=== PATIENT | male | born 1940 | race Caucasian/White ===

== ENCOUNTER 2020-04-22 00:42 | Inpatient (IN) | payer MEDICARE ==
[~2020-04-22] VITALS: Ht 172.7 cm; Wt 89.0 kg
[2020-04-22] VITALS (22 sets, daily range): BP systolic 112–189; BP diastolic 63–86
--- NOTE | 2020-04-22 00:42 | NUR ---
PT TO ROOM AT 0037 BY EMS AND EKG DONE. PT HR 167. DR WOOD AT BEDSIDE. PT STATES SOB GOT WORSE TONIGHT. SAW PMD FOR SOB FOR 5 DAYS AND STARTED ON MUSINEX WHICH HE STATES IS NOT HELPING.
--- NOTE | 2020-04-22 01:06 | NUR ---
PT NOW IN A-FLUTTER 90. PT STATES NO MORE CHEST TIGHTNESS AND NO SOB,
[2020-04-22 01:30] LABS: HEMATOCRIT 44.9 % (39.0-50.0); HEMOGLOBIN 15.2 g/dl (14.0-18.0); IMMATURE GRANULOCYTES 0.7 % (0.0-5.0); MEAN CELL VOLUME 85.2 fL CALC (80.0-100.0); MEAN CORPUSCULAR HGB 28.8 pG CALC (26.0-32.0); MEAN CORPUSCULAR HGB CONC 33.9 g/dL CAL (32.0-36.0); NEUT# 5.62 thou/uL (1.82-7.42); RED BLOOD COUNT 5.27 mill/uL (4.70-6.10); RED CELL DISTRI WIDTH 13.2 % (11.5-15.5)
[2020-04-22 01:58] LABS: ALBUMIN 3.8 g/dL (3.2-5.0); BILIRUBIN, TOTAL 0.9 mg/dL (0.0-1.4); CREATININE 1.5 mg/dL (0.7-1.3); POTASSIUM 3.7 mmol/l (3.5-5.1); TOTAL PROTEIN 6.9 g/dL (6.3-8.2)
[2020-04-22] MEDS ORDERED: METOPROL TAR25 MG PO (01:59)
[2020-04-22] MEDS ORDERED: ASPIRIN81 MG PO (02:01)
[2020-04-22] MEDS ORDERED: LISINOPRIL20 MG PO (02:01)
[2020-04-22] MEDS ORDERED: VIAGRA100 MG PO (02:02)
[2020-04-22] MEDS ORDERED: PLAVIX75 MG PO (02:02)
[2020-04-22] MEDS ORDERED: HYDROCHLOROT12.5 MG PO (02:03)
[2020-04-22] MEDS ORDERED: LANTUS100 UNIT/M SC (02:03)
[2020-04-22] MEDS ORDERED: FISH OIL1000 MG PO (02:04)
[2020-04-22] MEDS ORDERED: TAMSULOSIN0.4 MG PO (02:05)
--- NOTE | 2020-04-22 02:06 | NUR ---
PT HR 89 CARDIZEM DRIP INFUSING AT 5MG/HR. PT HAS HAQUE IN HIS WALLET NOTED WHEN CHECKING FOR MEDLIST. COUNTED IN FRONT OF PT AND TOTAL OF 87 DOLLARS. 1 20$ 1 50$ 2 5$ 7 1$
[2020-04-22 02:20] LABS: D-DIMER 1.23 mg/L (0.19-0.60)
[2020-04-22 02:26] LABS: ACT PARTIAL THROMBO TIME 29.4 SECONDS (20.0-32.5); INTERNATIONAL NORMALIZED RATIO 1.2 RATIO (0.7-1.3); PROTHROMBIN TIME 11.7 SECONDS (9.0-12.5)
[2020-04-22 02:28] LABS: TSH, 3RD GENERATION 2.28 uIU/mL (0.47 - 4.68)
--- NOTE | 2020-04-22 02:35 | NUR ---
PT ADMITED TO HOSPITAL TO ER HOLD ROOM 11
--- NOTE | 2020-04-22 02:35 | NUR ---
PT ADMITTED ER BED 11 FOR ICU. CARDIZEM DRIP CONTINUES AT 5MG/ML. PT RESTING QUIETLY, CONTINUES IN AFLUTTER ON MONITOR. CALL SPARKS IN REACH.
--- NOTE | 2020-04-22 04:35 | NUR ---
PT CHANGED INTO HOSPITAL BED. IV CARDIZEM CONTINUES TO INFUSES WITH NS. MONITOR CONTINUES WITH AFLUTTER.
--- NOTE | 2020-04-22 06:31 | NUR ---
PT NOW GOING FROM AFLUTTER TO AFIB STILL 90-91. PT CONTIUES TO REST QUIETLY ON STRETCHER. CALL SPARKS IN REACH.
--- NOTE | 2020-04-22 06:55 | NUR ---
REPORT GIVEN TO BOWEN KELLEY
--- NOTE | 2020-04-22 07:00 | NUR ---
PATIENT REPORT RECIEVED FROM JIGAR PACK FOR TRANSPORT ONLY.
--- NOTE | 2020-04-22 07:31 | NUR ---
male pt received from ER via bed accompanied per Yfn Pierson RN in stable condition; assessment completed at this time; pt alert and oriented; denies pain/ discomfort; offers no complaints; c/c of sob X5 days associated with nonproductive cough; resp even and unlabored; exertional sob noted; lungs diminished with rales to bilat bases; skin color wnl; o2 per nc at 4L; o2 sat 91%; freq creative services coordinator cough noted; coughing etiquette explained; hr irreg; weak pedal pulses; no edema noted; aflutter on monitor; hr 90s; abd soft/distended with bs present; no bm noted per video game script writer; pt admits to voiding without complication; no urine to inspect at this time; urinal at bedside; #20 flushed and patent to lac; cardizem gtt infusing at 5mg/hr; ivf infusing; no redness or edema noted at site; ems site; plan of care/ am meds explained; pt admits to decreases sensation of taste and smell; denies being exposed to known to covid + person; isolation precations explained; call light within reach; will continue to monitor
--- NOTE | 2020-04-22 07:35 | NUR ---
Admission Note Report Given to: JIGAR SINGH Transported by: Wheelchair X Stretcher Transported with: X Nurse Transporter X Patent IV X O2 X Lodge Officer Location: X ICU MS2 PATIENT TO ICU BED 4 IN STABLE CONDITION.
--- NOTE | 2020-04-22 08:10 | NUR ---
awake in bed; freq coughing noted; pt offers no complaints; iv intact and patent; cardizem gtt cont at 5mg/hr; o2 per nc at 4L; o2 sat 92%; call light within reach; will continue to monitor
--- NOTE | 2020-04-22 09:26 | NUR ---
Dr Prescott present at bedside to assess pt and discuss plan of care;
--- NOTE | 2020-04-22 10:10 | NUR ---
awake in bed; no apparent distress noted; pt offers no complaints; iv intact and patent; cardizem gtt at 5mg/hr; no redness or edema noted at site; additional iv assess attempted and unsuccessful; aflutter on monitor; call light within reach; will continue to monitor
--- NOTE | 2020-04-22 12:07 | NUR ---
awake in bed; no apparent distress noted; iv intact and patent; cardizem gtt at 5mg/hr; aflutter on monitor; o2 per nc; call light within reach; will continue to monitor
[2020-04-22 12:41] LABS: URINE BILIRUBIN - DIPSTICK NEGATIVE (NEGATIVE); URINE BLOOD DIPSTICK MODERATE (NEGATIVE); URINE COLOR YELLOW; URINE GLUCOSE - DIPSTICK >=1000 mg/dL (NEGATIVE); URINE KETONE 15 mg/dL (NEGATIVE); URINE LEUK ESTERASE NEGATIVE (NEGATIVE); URINE NITRITE - DIPSTICK NEGATIVE (Negative); URINE PROTEIN - DIPSTICK 100 mg/dL (NEG-TRACE); URINE SPECIFIC GRAVITY >=1.030; URINE UROBILINOGEN - DIPSTICK 0.2 E.U./dL (0.2)
--- NOTE | 2020-04-22 14:01 | NUR ---
resting in bed with eyes closed; no apparent distress noted; resp even and unlabored; o2 per nc; aflutter on monitor; iv intact and patent; call light within reach; will continue to monitor
--- NOTE | 2020-04-22 16:10 | NUR ---
awake in bed; no apparent distress noted; pt offers no complaints; iv intact and patent; aflutter on monitor; o2 per nc at 4L; urinal at bedside; call light within reach; will continue to monitor
--- NOTE | 2020-04-22 16:49 | NUR ---
pt high school professional light stating "I'm starving"; pt has refused breakfast and lunch; accucheck obtained at 231; pudding and jello provided; staff at bedside to pull pt up in bed as per request; commercial loan underwriter then assist to sit pt on side of bed as per request; o2 sat drops to 88% with exertion; pt with freq coughing; again, coughing etiquette explained; aflutter on monitor; call light within reach; will continue to monitor
--- NOTE | 2020-04-22 17:05 | NUR ---
Aleta (friend) called this keno writer / runner; unable to provide passcode; pt states to give her any information she wants; information provided
--- NOTE | 2020-04-22 18:19 | NUR ---
pt awake in bed; no apparent distress noted; resp even and unlabored; aflutter on monitor; o2 per nc; iv intact and patent; cardizem gtt at 5mg/hr; no redness or edema noted at site; call light within reach
--- NOTE | 2020-04-22 19:10 | NUR ---
REPORT GIVEN BY SAMANTHA. PATIENT IN BED. RESP LABORED AND SHALLOW, O2 4L VIA NC, DRY COUGH, RALES PRESENT IN THE BASES. IV INFUSING CARDIZEM AND IV FLUIDS. BOWEL SOUNDS PRESENT. PLAN OF CARE DISCUSSED. PATIENT INFORMED TO CALL WITH ANY QUESTIONS OR CONCERNS. FALL AND SAFTEY PRECAUTIONS.
--- NOTE | 2020-04-22 22:00 | NUR ---
PATIENT RESTING WITH EYES CLOSED. RESP LABORED AND EVEN. NO CNAGE IN ASSESSMENT. FALL AND SAFTEY PRECAUTIONS IN PLACE.
[2020-04-23] VITALS (37 sets, daily range): BP systolic 133–197; BP diastolic 65–96
--- NOTE | 2020-04-23 | NUR ---
Patient resting with eyes closed. Resp even and unlabored. No s/s of distress noted. Fall and saftey precautions in place.
--- NOTE | 2020-04-23 02:25 | NUR ---
Patient resting with eyes closed. Resp even and unlabored. No s/s of distress noted. fall and saftey precautions in place.
--- NOTE | 2020-04-23 04:00 | NUR ---
PATIENT RESTING WITH EYES CLOSES. EXPERIENCING COUGHING SPELLS THROUGHOUT THE NIGHT. PATIENT STATES HE HAS BEEN UNABLE TO REST WELL BECAUSE OF THE COUGHING. PATIENT CONTIUNES TO BOUNCES FROM A-FIB/A-FLUTTER/NSR WITHIN SEVERAL MINUTES. OTHERWISE NO ACUTE DISTRESS NOTED. FALL AND SAFTEY PRECAUTIONS IN PLACE.
[2020-04-23 04:59] LABS: HEMATOCRIT 40.7 % (39.0-50.0); HEMOGLOBIN 13.7 g/dl (14.0-18.0); IMMATURE GRANULOCYTES 0.6 % (0.0-5.0); MEAN CELL VOLUME 85.3 fL CALC (80.0-100.0); MEAN CORPUSCULAR HGB 28.7 pG CALC (26.0-32.0); MEAN CORPUSCULAR HGB CONC 33.7 g/dL CAL (32.0-36.0); NEUT# 4.14 thou/uL (1.82-7.42); RED BLOOD COUNT 4.77 mill/uL (4.70-6.10); RED CELL DISTRI WIDTH 13.1 % (11.5-15.5)
--- NOTE | 2020-04-23 05:20 | NUR ---
NEW IV STARTED 20 KALE, GOOD BLOOD RETURN AND FLUSHED WELL.
[2020-04-23 05:23] LABS: ANION GAP 14 (6-22 (CALC)); BUN 29 mg/dL (8-23); BUN/CREATININE RATIO 27 (12-20 (CALC)); C-REACTIVE PROTEIN 6.8 mg/dL (0-0.9); CARBON DIOXIDE 19 mmol/l (22-30); CHLORIDE 102 mmol/l (95-108); CREATININE 1.1 mg/dL (0.7-1.3); GFR > 60 ML/MIN (>=60 (CALC)); GFR FOR AFR.AMER. > 60 ML/MIN (>=60 (CALC)); POTASSIUM 3.3 mmol/l (3.5-5.1); SODIUM 132 mmol/l (137-146)
--- NOTE | 2020-04-23 06:53 | NUR ---
PT REPORT RECEIVED
--- NOTE | 2020-04-23 07:29 | NUR ---
ASSESSMENT DONE, PT ALERT/ORIENTED X3, LUNGS REMAIN DIMINISHED. ACCUCHECK DONE 245 COVERED WITH INSULIN AT 2 UNITS. BREAKSFAST GIVEN, PT SITTING UP AT BEDSIDE, CALL LIGHT WITHIN REACH
--- NOTE | 2020-04-23 09:16 | NUR ---
Dr Prescott present at bedside to assess pt and discuss plan of care
--- NOTE | 2020-04-23 09:30 | NUR ---
PT COMPLAINT OF BURNING WITH POTASSIUM DRIP, SLOWED RATE DOWN TO 20CC/HR. PT STATES PAIN AND BURNING TO ARM REMAINS. SHUT DRIP OFF AND DR. NOTIFIED. WILL STOP DRIP AND PLACE PT ON NS WITH 40 FISH AT 75 CC HR.
--- NOTE | 2020-04-23 10:36 | NUR ---
PT RESTING QUIETLY ON STRETCHER, VITAL SIGNS REMAIN THE SAME, ADVISED OF NEW MEDICATION ORDER FOR POTASSIUM IN IV FLUIDS
--- NOTE | 2020-04-23 11:25 | NUR ---
LUNCH TRAY GIVEN, PT SITTING UP WATCHING TV.
--- NOTE | 2020-04-23 13:41 | NUR ---
HEART RATE CONSITENTLY IN THE UPPER 50'S. DECREASED CARDIZEM TO 2.5 MG AND VITAL SIGNS EVERY 15 MIN
--- NOTE | 2020-04-23 14:37 | NUR ---
CASE MANAGEMENT HERE TO SEE SPEAK WITH PT.
--- NOTE | 2020-04-23 15:06 | NUR ---
RESPIRATORY HERE FOR EKG FOR CARDIAC RHYTHM CHANGES
--- NOTE | 2020-04-23 16:11 | NUR ---
PT RESTING QUIETLY ON STRETCHER, CALL LIGHT WITHIN REACH, CARDIAC MONITER REMAINS IN SINUS RHYTHM, VITAL SIGNS STABLE. PT WATCHING TV. NO COMPLAINTS AT THIS TIME
--- NOTE | 2020-04-23 16:39 | NUR ---
ACCUCHECK OBTAINED AT 322, MEDICATED WITH 4 UNITS PER PROTOCOL WITH SAMANTHA KIMBALL.
--- NOTE | 2020-04-23 16:55 | NUR ---
CARDIZEM GTT STOPPED PER PROTOCOL FOR HEART RATE80 WITH SR
--- NOTE | 2020-04-23 18:07 | NUR ---
PT RESTING QUIETLY ON STRETCHER, WATCHING GOLF, VITAL SIGNS STABLE. CALLED TO DIETARY, PT REQUESTING CEREAL AND WHOLE MILK FOR MORNING MEAL, AND POSSIBLY HALL SANDWICH FOR LUNCH.
--- NOTE | 2020-04-23 18:12 | NUR ---
Dr Prescott notified of eleavated sbp; made aware cardizem gtt has been weaned per orders and pt converted to NSR at 1411 rate in the 80s; orders received and on chart
--- NOTE | 2020-04-23 19:00 | NUR ---
REPORT RECEIVED FROM Camila ALONZO RN, CARE OF PT ASSUMED AT THIS TIME. PT IS PUI CV-19 WITH AIRBORNE/CONTACT PRECAUTIONS IN PLACE. RAPID IgG AND IgM NEGATIVE, SWAB PENDING. PT VISUALIZED AND APPEARS TO BE RESTING COMFORTABLY, NO APPARENT DISTRESS. RESPIRATIONS REGULAR AND UNLABORED WITH PERIODIC COUGHING. NON-INVASIVE HEMODYNAMICS STABLE ON MONITOR. CALL SPARKS WITHIN REACH.
--- NOTE | 2020-04-23 20:00 | NUR ---
PT RESTING IN BED, APPEARS COMFORTABLE. NO APPARENT DISTRESS. RESPIRATIONS REGULAR AND UNLABORED WITH AN Sp02 BETWEEN 88-92%. SR WITH PVCs ON THE MONITOR WITH RATE IN THE 80'S. PHYSICAL ASSESMENT COMPLETE. PLAN OF CARE REVIEWED. PT VERBALIZES UNDERSTANDING AND DENIES QUESTIONS AT THIS TIME. PT REQUESTS WARM BLANKET, PROVIDED REQUESTED. DENIES FURTHER NEEDS AT THIS TIME. CALL SPARKS IS WITHIN REACH, PT AGREES TO CALL PRN.
--- NOTE | 2020-04-23 21:00 | NUR ---
BEDSIDE FINGERSTICK GLUCOSE 273mg/dl. SCHEDULED AND PRN MEDICATIONS ADMINISTERED PRESCRIBED. SEE E-MAR. PT DENIES FURTHER NEEDS AT THIS TIME. CALL SPARKS REMAINS WITHIN REACH, AGREES TO CALL PRN.
--- NOTE | 2020-04-23 22:50 | NUR ---
PT REPORTS ROOM IS TO HOT, THERMOSTAT TURNED DOWN AND ONE BLANKET REMOVED.
--- NOTE | 2020-04-23 23:05 | NUR ---
PT STATES IT IS STILL TO HOT, SECOND BLANKET REMOVED, LEAVING JUST A SHEET. FAN PROVIDED IN ROOM.
--- NOTE | 2020-04-23 23:10 | NUR ---
PT CALL SAYING IT IS NOW TO COLD AND THE FAN IS GOING TO GIVE HIM PNEUMONIA. EDUCATION PROVIDED ON PNEUMONIA. FAN TURNED OFF. DENIES FURTHER NEEDS. CALL SPARKS WITHIN REACH, AGREES TO CALL PRN.
[2020-04-24] VITALS (45 sets, daily range): BP systolic 80–191; BP diastolic 42–136
--- NOTE | 2020-04-24 02:08 | NUR ---
PT RESTING IN BED, EYES CLOSED. RESPIRATIONS REGULAR AND UNLABORED. APPEARS COMFORTABLE AND IN NO DISTRESS. CALL SPARKS REMAINS WITHIN REACH.
--- NOTE | 2020-04-24 04:15 | NUR ---
PT REQUESTS ICE AND ICE WATER REFILLED. ICE CHIPS AND FRESH ICE WATER PROVIDED PER PTS REQUEST. PT DENIES FURTHER NEEDS AT THIS TIME. CALL SPARKS WITHIN REACH, AGREES TO CALL PRN
--- NOTE | 2020-04-24 06:45 | NUR ---
RECIEVED REPORT FROM JIGAR OAKES. ASSUMED PT CARE.
--- NOTE | 2020-04-24 07:30 | NUR ---
PT A&OX4, ABLE TO MAKE NEEDS KNOWN. RESPIRATION EVEN/UNLABORED, SOB WITH EXERTION. SA02@89% ON 02@4LPM/NC. LS WHEEZING/DIMINISHED. HTN CONTINUES B/P 187/75, PT PREVIOUSLY MEDICATED. ABDOMEN DISTENDED/FIRM, BS/ACTIVE, LBM 9-25 20GLAC/EMS/SL, [id number]+ INFUSING @75ML/HR TO 20GLUA, NO S/S OF INFILTRATION AT SITE. CALL LIGHT IN REACH. WILL MONITOR.
--- NOTE | 2020-04-24 07:41 | NUR ---
LAB AT BEDSIDE FOR BLOOD DRAW.
[2020-04-24 07:47] LABS: HEMATOCRIT 40.6 % (39.0-50.0); HEMOGLOBIN 13.6 g/dl (14.0-18.0); IMMATURE GRANULOCYTES 1.1 % (0.0-5.0); MEAN CELL VOLUME 84.6 fL CALC (80.0-100.0); MEAN CORPUSCULAR HGB 28.3 pG CALC (26.0-32.0); MEAN CORPUSCULAR HGB CONC 33.5 g/dL CAL (32.0-36.0); NEUT# 11.22 thou/uL (1.82-7.42); RED BLOOD COUNT 4.8 mill/uL (4.70-6.10); RED CELL DISTRI WIDTH 13.2 % (11.5-15.5)
[2020-04-24 08:02] LABS: ALKALINE PHOSPHATASE 54 u/l (38-126); ANION GAP 12 (6-22 (CALC)); BILIRUBIN, TOTAL 0.6 mg/dL (0.0-1.4); BUN 29 mg/dL (8-23); BUN/CREATININE RATIO 27 (12-20 (CALC)); CARBON DIOXIDE 20 mmol/l (22-30); CHLORIDE 106 mmol/l (95-108); CREATININE 1.1 mg/dL (0.7-1.3); GFR > 60 ML/MIN (>=60 (CALC)); GFR FOR AFR.AMER. > 60 ML/MIN (>=60 (CALC)); POTASSIUM 3.7 mmol/l (3.5-5.1); SGOT/AST 30 u/l (19-48); SODIUM 135 mmol/l (137-146)
--- NOTE | 2020-04-24 08:08 | NUR ---
PT UP TO THE SIDE OF BED EATING, NC OFF, REPLACED. 02SAT INCREASING.
--- NOTE | 2020-04-24 08:26 | NUR ---
DR. BERRY AT BEDSIDE FOR ASSESSMENT AND TO DISCUSS PLAN OF CARE. NEW ORDERS RECIEVED.
[2020-04-24 08:35] LABS: ALBUMIN 2.9 g/dL (3.2-5.0); TOTAL PROTEIN 5.4 g/dL (6.3-8.2)
--- NOTE | 2020-04-24 09:30 | NUR ---
DC CALLED WITH CODE, UPDATE GIVEN.
--- NOTE | 2020-04-24 10:06 | NUR ---
MARU CALLED WITH CODE, UPDATE GIVEN.
--- NOTE | 2020-04-24 10:18 | NUR ---
FRANCISCO WITH CM AT BEDSIDE TO DISCUSS DISCHARGE PLANS.
--- NOTE | 2020-04-24 10:40 | NUR ---
PT HAVING RUNS OF V TACH. Radha MARTINEZ NOTIFIED. ORDERS RECEIVED FOR MAG LEVEL ON AM LABS. LAB NOTIFIED.
--- NOTE | 2020-04-24 11:10 | NUR ---
Radha MARTINEZ NOTIFIED OF MAG LEVEL 2.0. SUGGESTED TO NOTIFY DR BERRY. DR BERRY NOTIFIED AT THIS TIME.
--- NOTE | 2020-04-24 11:25 | NUR ---
NEW ORDERS RECEIVED FROM DR BERRY AT THIS TIME.
--- NOTE | 2020-04-24 11:44 | NUR ---
RAPID RESPONSE CALLED
--- NOTE | 2020-04-24 11:50 | NUR ---
GALDAMEZ PLACED USING STERILE TECHNIQUE WITH IMMEADIATE RETURN OF CLEAR URINE NOTED.
--- NOTE | 2020-04-24 12:09 | NUR ---
VERSED GIVEN ORDERED FOR INTUBATION
--- NOTE | 2020-04-24 12:14 | NUR ---
SUC GIVEN BY GERMAIN ESCALANTE
--- NOTE | 2020-04-24 12:16 | NUR ---
PT INTUBATED, BORIS GROVES. RT, AT BEDSIDE. 24 AT LL, AC-20, VT-450, PEEP- 18, FIO2@ 100%.
--- NOTE | 2020-04-24 12:18 | NUR ---
18FR OG INSERTED, PLACEMENT VERIFIED VIA CXR & AUSCULTATION. AT BEDSIDE.
--- NOTE | 2020-04-24 12:44 | NUR ---
PT INTUBATED AT 12:16 FIRST ATTEMPT. ET TUBE SIZE 8.0 SECURED 24 AT LIP. VERIFIED BY XRAY. VENT SETTINGS CHARTED ORDERED BY KRISTI. REPEAT ABG IN ONE HOUR.
--- NOTE | 2020-04-24 13:00 | NUR ---
INTIATED WITH [facility] FOR TRANSFER, SPOKE WITH HAMILTON. FAXED COVER SHEET.
--- NOTE | 2020-04-24 13:16 | NUR ---
LEVOPHED INTIATED ORDERED, PROTOCOL FOLLOWED.
--- NOTE | 2020-04-24 13:27 | NUR ---
NOTIFIED LOUIS HOFFMAN, SHE STATED SHE WOULD NOTIFY PT CHILDREN.
--- NOTE | 2020-04-24 13:30 | NUR ---
ALISA JUÁREZ CALLED WITH CODE, PT DAUGHTER. UPDATE GIVEN, CONSENT TO TRANSFER RECIEVED VERBALLY WITNESSED BY JIGAR JUSTIN.
--- NOTE | 2020-04-24 14:42 | NUR ---
HAMILTON WITH [facility] CALLED WITH ACCEPTING MD, AND BED ASSIGNMENT.
--- NOTE | 2020-04-24 14:51 | NUR ---
BATFLIGHT CALLED AND DECLINED DUE TO WEATHER. PER XAVI.
--- NOTE | 2020-04-24 14:58 | NUR ---
[facility] CALLED, THUAN FOR TRANSPOT 30-45 MIN.
--- NOTE | 2020-04-24 15:30 | NUR ---
[facility] NOTIFIED OF
--- NOTE | 2020-04-24 15:31 | NUR ---
MELANIE HERE FOR TRANSPORT. RT AT BEDSIDE.
--- NOTE | 2020-04-24 16:00 | NUR ---
MELANIE LEFT WITH PT VIA STRETCHER.
--- NOTE | 2020-04-24 16:10 | NUR ---
REPORT CALLED TO JIGAR MALCOLM [phone].
== END 2020-04-24 16:00 | disposition short-term general hospital (02) | DRG 871 ==
LOC: ED 00:42 → ED-I 02:20 → ED 02:34 → ED-I 02:35 → ICU 02:35
PROVIDERS: Family Medicine; ADMIT Internal Medicine; ATTEND Internal Medicine
PROC: 0BH17EZ Insertion of Endotracheal Airway into Trachea, Via Natural or Artificial Opening (ICD-10-PCS; principal; 2020-04-24)
PROC: 5A1935Z Respiratory Ventilation, Less than 24 Consecutive Hours (ICD-10-PCS; 2020-04-24)
PROC: 02HV33Z Insertion of Infusion Device into Superior Vena Cava, Percutaneous Approach (ICD-10-PCS; 2020-04-24)
DX: A41.89 Other specified sepsis (principal); U07.1 COVID-19; J96.01 Acute respiratory failure with hypoxia; J12.89 Other viral pneumonia; I48.92 Unspecified atrial flutter; J44.1 Chronic obstructive pulmonary disease with (acute) exacerbation; J44.0 Chronic obstructive pulmonary disease with (acute) lower respiratory infection; R65.20 Severe sepsis without septic shock; I10 Essential (primary) hypertension; E11.9 Type 2 diabetes mellitus without complications; I25.10 Atherosclerotic heart disease of native coronary artery without angina pectoris; I49.3 Ventricular premature depolarization; I95.9 Hypotension, unspecified; E78.5 Hyperlipidemia, unspecified; I48.91 Unspecified atrial fibrillation; Z90.49 Acquired absence of other specified parts of digestive tract; Z85.038 Personal history of other malignant neoplasm of large intestine; Z95.5 Presence of coronary angioplasty implant and graft; Z79.4 Long term (current) use of insulin
CPT/HCPCS: J1650; J3475